=== PATIENT | female | born 1975 | race Two or more races ===

== ENCOUNTER 2020-01-28 09:21 | Outpatient (CLI) | payer OTHER | END 2020-01-28 09:30 | disposition home or self-care (01) | LOC: RX STUDY 09:21 | PROVIDERS: ATTEND Surgery | DX: E66.01 Morbid (severe) obesity due to excess calories (principal) ==

== ENCOUNTER 2020-03-03 09:26 | Outpatient (CLI) | payer OTHER | END 2020-03-03 10:34 | disposition home or self-care (01) | LOC: RX STUDY 09:26 | PROVIDERS: ATTEND Surgery | DX: E66.09 Other obesity due to excess calories (principal) ==